=== PATIENT | male | born 1930 | race Two or more races ===

== ENCOUNTER 2017-05-13 17:53 | Emergency (ER) | payer OTHER ==
[~2017-05-13] VITALS: Ht 175.3 cm; Wt 93.0 kg
[~2017-05-13 17:53] MED LIST: ACET-868 PO; ACID1TAB2 PO; AMLO5TAB2 PO; BISA10SU8 RC; CALC-20 PO; CITA20TA11 PO; DOCU250C14 PO; FAMO20TA8 PO; GLIP5TAB13 PO; GUAI118S10 PO; LATA2.5D7 EACHEYE; LISI40TA4 PO; MAGN400O6 PO; MELO-105 PO; MIRT15TA7 PO; MULT1TAB11 PO; SENN8.6C5 PO; TAMS0.4C34 PO; TRAZ-144 PO
--- NOTE | 2017-05-13 18:00 | NUR ---
[id number], [id number] FROM HOME: SOB, DIAGNOSED WITH PNA ON 05/08/17 , MORE ALTERED THAN USUAL, BS IN FIELD 158. RR IS EVEN AND UNLABORED WITH NAD NOTED. SKIN IS WARM AND DRY. PLACED ON MONITOR. AWAITING MD FOR EVAL.
[2017-05-13] MEDS ORDERED: MELA5TAB PO (18:14)
[2017-05-13] MEDS ORDERED: LISI-607 PO (18:14)
[2017-05-13] MEDS ORDERED: CEFP200T14 PO (18:14)
[2017-05-13] MEDS ORDERED: CALC-34 PO (18:14)
[2017-05-13] MEDS ORDERED: ASPI-1152 PO (18:14)
[2017-05-13] MEDS ORDERED: ATOR10TA PO (18:14)
[2017-05-13] MEDS ORDERED: CHOL100044 PO (18:17)
[2017-05-13] MEDS ORDERED: POLY17PO4 PO (18:17)
--- NOTE | 2017-05-13 18:41 | NUR ---
CALLED [facility] SPOKE WITH JOE.
[2017-05-13 18:44] LABS: BASOPHILS % (AUTO) 0.3 % (0.0-2.0); EOSINOPHILS # (AUTO) 0.2 /CMM (0.0-0.7); EOSINOPHILS % (AUTO) 2.5 % (0.0-6.0); HEMATOCRIT 39 % (39-51); HEMOGLOBIN 13.4 g/dL (13.5-17.5); LYMPHOCYTES # (AUTO) 1.9 /CMM (0.8-4.8); MEAN CORPUSCULAR HEMOGLOBIN 32 PG (26.0-33.0); MEAN CORPUSCULAR HGB CONC 34 g/dl (31.0-36.0); MEAN CORPUSCULAR VOLUME 92 fL (80-96); MONOCYTES # (AUTO) 0.7 /CMM (0.1-1.30); MONOCYTES % (AUTO) 8.5 % (2.0-12.0); NEUTROPHILS # (AUTO) 4.9 /CMM (1.8-8.9); NEUTROPHILS % (AUTO) 63.7 % (43.0-81.0); PLATELET COUNT (AUTO) 165 /CMM (150-450); RDW COEFFICIENT OF VARIATION 12.5 (11.5-15.0); RED BLOOD CELL COUNT(AUTO) 4.27 MIL/uL (4.5-6.0); WHITE BLOOD COUNT (AUTO) 7.7 K/uL (4.3-11.0)
--- NOTE | 2017-05-13 18:50 | NUR ---
XRAY IN PROGRESS AT BS.
[2017-05-13 19:01] LABS: CALCIUM, SERUM 8.7 mg/dL (8.5-10.1); CARBON DIOXIDE 33 mmol/L (21-32); CHLORIDE 100 mmol/L (98-107); GLUCOSE 123 mg/dL (74-106); SODIUM SERUM 138 mmol/L (136-145); UREA NITROGEN, BLOOD 21 mg/dL (7-18)
[2017-05-13 19:04] LABS: INR 1.04 (0.85-1.15)
[2017-05-13 19:08] LABS: TROPONIN I 0.031 ng/mL (0.00-0.056)
[2017-05-13 19:13] LABS: ALANINE AMINOTRANSFERASE 53 U/L (12-78); ALBUMIN 3.2 g/dL (3.4-5.0); ALKALINE PHOSPHATASE 90 U/L (46-116); ASPARTATE AMINOTRANSFERASE 47 U/L (15-37); B-TYPE NATRIURETIC PEPTIDE 293 PG/ML (0-125); BILIRUBIN,DIRECT 0.1 mg/dL (0.0-0.2); BILIRUBIN,TOTAL 0.4 mg/dL (0.2-1.0); TOTAL PROTEIN, SERUM 7.6 g/dL (6.4-8.2)
--- NOTE | 2017-05-13 19:46 | NUR ---
CALLED [facility] SPOKE WITH JOE,EXPECTING A CALL BACK FROM A [facility]
--- NOTE | 2017-05-13 20:43 | NUR ---
[facility]HER [facility]. AWAITING TRANSFER INFO.
--- NOTE | 2017-05-13 21:15 | NUR ---
[facility] CALLED WITH TRANSFER INFO. PATIENT WILL BE ADMITTED TO [facility] ED NUMBER TO GIVE REPORT IS ACCEPTED BY DR NEWSOME, ALS ETA 2200.
--- NOTE | 2017-05-13 21:30 | NUR ---
REPORT CALLED TO [facility] FRANCESCA LOMELI. AWAITING TRANSPORT.
[2017-05-13 22:07] VITALS: BP 130/78
--- NOTE | 2017-05-13 22:25 | NUR ---
VOLODYMYR JIMENES AT BEDSIDE REPORT GIVEN TO [facility] TRANSPORT.
== END 2017-05-13 22:25 | disposition short-term general hospital (02) ==
LOC: ER 17:54
DX: R41.82 Altered mental status, unspecified (principal); E11.9 Type 2 diabetes mellitus without complications; G20 Parkinson's disease; I10 Essential (primary) hypertension; Z79.82 Long term (current) use of aspirin; Z79.84 Long term (current) use of oral hypoglycemic drugs; Z88.0 Allergy status to penicillin; Z88.1 Allergy status to other antibiotic agents; Z88.8 Allergy status to other drugs, medicaments and biological substances
CPT/HCPCS: 36415; 71045; 80048; 80076; 83605; 83880; 84484; 85025; 85730; 87040 ×2; 93005; 99285; A4606; Z7610